=== PATIENT | male | born 1970 | race Caucasian/White ===

== ENCOUNTER 2018-02-18 10:20 | Day surgery (SDC) | payer OTHER, MEDICAID, SELFPAY ==
[2018-02-07 09:55] VITALS: BMI 28.2
[2018-02-18 10:33] VITALS: BMI 27.8
[2018-02-18 10:42] VITALS: BP 126/82; PULSE 72; RESP 12; TEMP 36.8; O2SAT 100
[2018-02-18] MEDS: LACTATED RINGERS 1,000 ML 21 ML IV (10:51)
[2018-02-18] MEDS: FAMOTIDINE 20 MG/50 ML PIGGYBACK 200 MG IV (11:14)
[2018-02-18] MEDS: CEFAZOLIN 2 GM/100 ML FROZ.PIGGY IV (11:15)
--- NOTE | 2018-02-18 11:24 | PM.PREOP ---
Pre-operative Note Interval Note Pre-op Check: Yes History & Physical Reviewed by Physician and Yes Exam Performed Changes: No H&P completed within 30 days and has changed as indicated here:: Patient seen and examined in the preoperative area. Surgical site marked accordingly. There have been no changes in his history and physical examination as documented and placed on the chart February 03, 2018. Proceed with left inguinal hernia repair today as planned.
--- NOTE | 2018-02-18 11:32 | SUR.OPER ---
Supine on padded OR bed, head on pillow, arms secured on padded arm boards at <90 degrees abduction, legs uncrossed, safety belt at thigh, tape over blanket over lower legs.
[2018-02-18] MEDS: BUPIVACAINE 0.5% (PF) VIAL 30 ML INJ (11:45)
[2018-02-18] MEDS: LIDOCAINE 1% W/EPI INJ 20 ML INJ (11:45)
[2018-02-18 12:53] VITALS: BP 125/74; PULSE 74; RESP 15; TEMP 36.3; O2SAT 97
[2018-02-18] MEDS: LACTATED RINGERS 1,000 ML 42 ML IV (12:53)
--- NOTE | 2018-02-18 12:57 | PM.OP.1 ---
Operative Date/Time/Diagnoses Date of procedure: 02/18/18 Time of procedure: 12:57 Pre-op diagnosis: Symptomatic left inguinal hernia Post-op diagnosis: other (Symptomatic indirect left inguinal hernia) Procedure & Clinicians Procedure: Open left inguinal hernia repair with mesh Same procedure as scheduled: Yes Indications: 47-year-old male who presented with painful intermittent left inguinal mass. Examination and evaluation were consistent with hernia. Open repair with mesh was recommended. Surgeon: Kash Tristan Click Yes if Unassisted: Yes Anesthesia Type: General Operative Notes Findings: 1. Indirect left inguinal hernia 2. No evidence of direct inguinal hernia 3. Testicles in normal descended position bilaterally at the conclusion of the case Closure Type: primary Specimen(s): none sent Implants & Drains: Medium-size Pro Loop polypropylene mesh plug and patch into left inguinal canal Applied: other (See above) Estimated Blood Loss (mL): 5 Blood products transfused: none Procedure in detail: After obtaining informed consent the patient was brought to the operating room placed supine on the table. After satisfactory induction of anesthesia the abdomen and genitalia were prepped and draped in usual sterile fashion. SCOAP time out was performed per standard protocol. Transverse incision for a distance of 4 cm was designed over the inferior aspect of the left inguinal canal. Area was infiltrated with a 1-1 mixture 1% lidocaine with 1 100,000 epinephrine and 0.5% plain Marcaine for postoperative analgesia. Skin incision was created with 10 scalpel blade. Bovie was used to achieve hemostasis and carried the dissection down through the subcutaneous tissue to the external oblique fascia. Weitlaner retractor was used to provide exposure. External oblique fascia was incised with a 15 scalpel blade in the direction of its fibers followed by Metzenbaum scissors overlying the spermatic cord. Edges of the fascia were secured with hemostats. Blunt dissection revealed the ileopubic tract laterally, conjoined tendon anteriorly, and rectus fascia medially. Spermatic cord was encircled bluntly with the surgeon's fingers followed by Turpin drain. Meticulous blunt dissection using DeBakey forceps was employed to skeletonize the spermatic cord and thereby liberate the indirect hernia sac. No evidence of direct hernia was identified. There was a lipoma of the cord which was excised with the Bovie and discarded. Great care was taken to avoid injury to the ilioinguinal nerve, testicular vessels, and vas deferens. After liberating the hernia sac was easily reduced into the abdominal cavity. Mesh was brought onto the operative field and soaked in saline. Plug was placed into the internal inguinal ring and secured with several interrupted 2 0 Vicryl stitches. Onlay patch was then brought onto the operative field and secured circumferentially with interrupted 0 Tycron sutures. Anteriorly the patch was secured to the conjoined tendon while medially it was secured to the rectus fascia. Laterally the mesh was secured to the ileal pubic tract. Tails of the mesh were brought around the spermatic cord and secured deep to the external oblique fascia. Meticulous examination of the defect and the mesh was noted to avoid strangulation of the cord. Wound was irrigated with copious amounts of sterile saline solution and hemostasis was verified. Spermatic cord was replaced into its usual anatomic position along with the ilioinguinal nerve. Again hemostasis was verified in the external oblique fascia was closed over the cord with a running 3 0 Vicryl suture. Subcutaneous tissue was reapproximated with interrupted 3 0 Vicryl suture. Skin was closed with a running 4 0 Monocryl suture in a subcuticular fashion. Dermal adhesive was applied to the skin. Testicles were noted to be in normal descended position at the conclusion of the case. Anesthesia was reversed and the patient extubated in the operating room. He was taken recovery in stable condition. Complications: none Condition: stable Disposition: PACU Plan for aftercare: 1. Discharge home 2. Follow up in surgery Clinic in 2 weeks
[2018-02-18 12:58] VITALS: BP 111/75; PULSE 78; RESP 16; O2SAT 97
[2018-02-18 13:03] VITALS: BP 111/76; PULSE 78; RESP 16; O2SAT 96
[2018-02-18 13:17] VITALS: BP 120/79; PULSE 68; RESP 12; TEMP 36.6; O2SAT 100
[2018-02-18 13:27] VITALS: TEMP 36.6
[2018-02-18] MEDS: OXYCODONE/ACETAMINOPHEN 5/325 TABLET 1 TAB PO (13:27)
== END 2018-02-18 13:37 | disposition home or self-care (01) ==
PROVIDERS: PCP Family Medicine Geriatric Medicine; Visit Provider Surgery
PROC: (CPT 49505; principal; 2018-02-18 13:45)
DX: K40.90 Unilateral inguinal hernia, without obstruction or gangrene, not specified as recurrent (principal); D17.6 Benign lipomatous neoplasm of spermatic cord; F17.210 Nicotine dependence, cigarettes, uncomplicated; G47.33 Obstructive sleep apnea (adult) (pediatric)
CPT/HCPCS: 49505; C1781; J0690; J1100; J2250; J2405; J2704; J3010